=== PATIENT | female | born 1935 | race Caucasian/White ===

== ENCOUNTER 2024-01-12 11:34 | Emergency (ER) | payer MEDICARE, OTHER ==
[2024-01-12 11:48] VITALS: BP 161/78; PULSE 75
[2024-01-12] MEDS ORDERED: Naloxone 2 MG/2 ML Syringe IVPUSH PRN (13:31)
[2024-01-12] MEDS: HYDROmorphone 0.5 MG/0.5 ML Syringe IVPUSH ONE ×2 (13:50→15:05)
[2024-01-12] MEDS: Ondansetron 4 MG/2 ML SDV IVPUSH PRN (13:50)
== END 2024-01-12 15:15 ==
LOC: CC.ED 11:34
DX: S72.001A Fracture of unspecified part of neck of right femur, initial encounter for closed fracture (principal); I10 Essential (primary) hypertension; M19.90 Unspecified osteoarthritis, unspecified site; E11.9 Type 2 diabetes mellitus without complications; Z79.82 Long term (current) use of aspirin; Z79.899 Other long term (current) drug therapy; Z91.040 Latex allergy status; Z88.5 Allergy status to narcotic agent; Z88.8 Allergy status to other drugs, medicaments and biological substances; W01.0XXA Fall on same level from slipping, tripping and stumbling without subsequent striking against object, initial encounter
CPT/HCPCS: 72170; 73552; 96374; 96375; 96376; 99285; J1170; J2405

== ENCOUNTER 2024-01-19 15:12 | Inpatient (IN) | payer MEDICARE, OTHER ==
[2024-01-19] MEDS ORDERED: Temazepam 15 MG Cap PO PRN (15:51)
[2024-01-19] MEDS ORDERED: Polyethylene Glycol 3350 Powder 17 GM Packet PO PRN (15:51)
[2024-01-19] MEDS ORDERED: Ondansetron 4 MG Tab.DIS PO PRN (15:51)
[2024-01-19] MEDS ORDERED: [UNRECOGNIZED DRUG - OTHER] PO SCH (17:30)
[2024-01-19] MEDS ORDERED: METFORMIN HCL PO SCH (17:30)
[2024-01-19] MEDS ORDERED: SITAGLIPTIN PHOS PO SCH (17:30)
[2024-01-19] MEDS ORDERED: diphenhydrAMINE 25 MG Cap PO PRN (17:45)
[2024-01-19] MEDS: Potassium Chloride 10 MEQ Tab.ER PO SCH (19:22)
[2024-01-19] MEDS: Docusate Sodium 100 MG Cap PO SCH (19:22)
[2024-01-19] MEDS: Simvastatin 10 MG Tab PO SCH (19:22)
[2024-01-19] MEDS: Losartan 25 MG Tab PO SCH (19:23)
[2024-01-19] MEDS: Calcium Carbonate/Vitamin D3 1250 MG-5 MCG Tab PO SCH (19:23)
[2024-01-19] MEDS ORDERED: Non-Formulary Medication 1 Each (Glucosam/Chond-Msm1/C/Mang/Bor [Glucosa-Chond-Msm Complex PO SCH (20:00)
[2024-01-19] MEDS: traMADol 50 MG Tab PO PRN (22:31)
[2024-01-20] MEDS: metFORMIN 500 MG Tab PO SCH (01:04)
[2024-01-20] MEDS: Pantoprazole 40 MG Tab.CR PO SCH (06:38)
[2024-01-20] MEDS: glyBURIDE 5 MG Tab PO SCH (07:54)
[2024-01-20] MEDS: Aspirin 81 MG Tab.EC PO SCH (07:54)
[2024-01-20] MEDS: Saxagliptin 2.5 MG Tab PO SCH (07:54)
[2024-01-20] MEDS: Multivitamin Tab PO SCH (07:55)
[2024-01-20] MEDS: Furosemide 40 MG Tab PO SCH (07:55)
[2024-01-20] MEDS: Ferrous Sulfate 324 MG Tab.EC PO SCH (07:55)
[2024-01-20] MEDS ORDERED: Loratadine 10 MG Tab PO PRN (08:38)
[2024-01-20] MEDS: Enoxaparin 40 MG/0.4 ML Syringe SUBCUT SCH (11:30)
[2024-01-20] MEDS ORDERED: Enoxaparin 40 MG/0.4 ML Syringe SUBCUT SCH (12:00)
[2024-01-21] MEDS: Hypromellose 0.3% Ophth Soln 15 ML Bottle EYEBOTH ONE (12:28)
[2024-01-21] MEDS: metFORMIN 500 MG Tab PO ONE (17:37)
[2024-01-21] MEDS: Hypromellose 0.3% Ophth Soln 15 ML Bottle EYEBOTH SCH (19:15)
[2024-01-22] MEDS: METFORMIN PO SCH ×2 (07:48→18:17)
[2024-01-22] MEDS: SITAGLIPTIN PO SCH ×2 (07:48→18:17)
[2024-01-24] MEDS ORDERED: Orphenadrine 60 MG/2 ML Inj IM ONE (01:41)
[2024-01-31] MEDS: Docusate Sodium 100 MG Cap PO SCH (07:31)
[2024-02-12 19:20] VITALS: BP 124/61
[2024-02-12 20:44] VITALS: PULSE 85
== END 2024-02-13 10:30 | disposition home or self-care (01) | DRG 561 ==
LOC: CC.MS 15:12 → UNDOADMIN 15:12 → CC.MS 15:42
PROVIDERS: ADMIT Physician Assistant Medical; ATTEND Physician Assistant Medical
DX: S72.001D Fracture of unspecified part of neck of right femur, subsequent encounter for closed fracture with routine healing (principal); M97.01XD Periprosthetic fracture around internal prosthetic right hip joint, subsequent encounter; E78.00 Pure hypercholesterolemia, unspecified; I10 Essential (primary) hypertension; K21.9 Gastro-esophageal reflux disease without esophagitis; M19.90 Unspecified osteoarthritis, unspecified site; E11.9 Type 2 diabetes mellitus without complications; Z91.040 Latex allergy status; Z88.5 Allergy status to narcotic agent; Z88.8 Allergy status to other drugs, medicaments and biological substances; Z79.82 Long term (current) use of aspirin; Z79.84 Long term (current) use of oral hypoglycemic drugs; Z79.899 Other long term (current) drug therapy; Z98.890 Other specified postprocedural states; W19.XXXD Unspecified fall, subsequent encounter
CPT/HCPCS: 82947; 97110-GP; 97161-GP; 97530-GP; A9270-GY; J1650

== ENCOUNTER 2024-12-23 08:35 | Observation (INO) | payer MEDICARE, OTHER ==
[2024-12-23] MEDS: traMADol 50 MG Tab PO ONE (10:10)
[2024-12-23] MEDS ORDERED: Ondansetron 4 MG/2 ML SDV IV PRN (11:37)
[2024-12-23] MEDS ORDERED: Naloxone 2 MG/2 ML Syringe IVPUSH PRN (11:37)
[2024-12-23] MEDS ORDERED: fentaNYL 50 MCG/ML SDV IVPUSH PRN (11:37)
[2024-12-23] MEDS ORDERED: Ondansetron 4 MG Tab.DIS PO PRN (11:37)
[2024-12-23 11:51] LABS: BASOPHILS ABSOLUTE AUTO 0.03 10^3/uL (0.00-0.50); BASOPHILS PERCENT AUTO 0.2 % (0-1); EOSINOPHILS ABSOLUTE AUTO 0.17 10^3/uL (0.00-1.50); EOSINOPHILS PERCENT AUTO 0.9 % (0-6); HEMATOCRIT 33.6 % (37.0-47.0); HEMOGLOBIN 10.7 g/dL (12.0-16.0); IMMATURE GRAN PERCENT AUTO 0.5 % (0.0-4.9); LYMPHOCYTES ABSOLUTE AUTO 1.55 10^3/uL (0.60-5.00); MEAN CORPUSCULAR HEMOGLOBIN 27.9 pg (27.0-32.0); MEAN CORPUSCULAR HGB CONC 31.8 g/dL (32.0-36.0); MEAN CORPUSCULAR VOLUME 87.5 fL (83.0-97.0); MONOCYTES ABSOLUTE AUTO 1.01 10^3/uL (0.00-1.50); MONOCYTES PERCENT AUTO 5.2 % (0-10); NEUTROPHILS ABSOLUTE AUTO 16.49 x10^3/uL (1.80-8.00); NEUTROPHILS PERCENT AUTO 85.2 % (41-71); PLATELET COUNT,PLT 206 10^3/uL (150-400); RED BLOOD CELL COUNT 3.84 x10^6/uL (4.00-5.50); WHITE BLOOD CELL COUNT,WBC 19.4 10^3/uL (4.0-11.0)
[2024-12-23 12:04] LABS: ALBUMIN 3.5 g/dL (3.4-5.0); BILIRUBIN TOTAL 0.4 mg/dL (0.0-1.0); CALCIUM 9.7 mg/dL (8.4-10.1); CREATININE 1.1 mg/dL (0.6-1.0); EST CRCL DRUG DOSING (CG) 24.9 mL/min; POTASSIUM,K 4.2 mEq/L (3.5-5.0); PROTEIN TOTAL,TP 7.1 g/dL (6.4-8.2)
[2024-12-23] MEDS: metFORMIN 500 MG Tab PO ONE (17:50)
[2024-12-23] MEDS: Potassium Chloride 10 MEQ Tab.ER PO SCH (17:50)
[2024-12-23] MEDS: traMADol 50 MG Tab PO PRN (18:29)
[2024-12-23] MEDS: Celecoxib 100 MG Cap PO SCH (19:39)
[2024-12-23] MEDS: Simethicone 80 MG Tab.Chew PO SCH (19:39)
[2024-12-23] MEDS: Calcium Carbonate/Vitamin D3 1250 MG-5 MCG Tab PO SCH (19:40)
[2024-12-23] MEDS: diphenhydrAMINE 25 MG Cap PO SCH (19:40)
[2024-12-23] MEDS: Losartan 100 MG Tab PO SCH (19:40)
[2024-12-23] MEDS: Simvastatin 10 MG Tab PO SCH (19:42)
[2024-12-23] MEDS ORDERED: Non-Formulary Medication 1 Each (Glucosam/Chond-Msm1/C/Mang/Bor [Glucosa-Chond-Msm Complex PO SCH (20:00)
[2024-12-24] MEDS: Pantoprazole 40 MG Tab.CR PO SCH (06:38)
[2024-12-24 07:28] VITALS: BP 137/89; PULSE 78
[2024-12-24] MEDS: metFORMIN 500 MG Tab PO SCH (07:45)
[2024-12-24] MEDS: Furosemide 40 MG Tab PO SCH (07:45)
[2024-12-24] MEDS: Naproxen 500 MG Tab PO SCH (07:45)
[2024-12-24] MEDS: Aspirin 81 MG Tab.EC PO SCH (07:45)
[2024-12-24] MEDS: glyBURIDE 5 MG Tab PO SCH (07:45)
[2024-12-24] MEDS: Multivitamin Tab PO SCH (07:46)
[2024-12-24] MEDS: Loratadine 10 MG Tab PO SCH (07:46)
[2024-12-24] MEDS: Enoxaparin 30 MG/0.3 ML Syringe SUBCUT SCH (07:46)
[2024-12-24 07:55] LABS: ALBUMIN 3.2 g/dL (3.4-5.0); BILIRUBIN TOTAL 0.4 mg/dL (0.0-1.0); C-REACTIVE PROTEIN 1.58 mg/dL (<=0.50); CALCIUM 9.5 mg/dL (8.4-10.1); EST CRCL DRUG DOSING (CG) 27.39 mL/min; POTASSIUM,K 4.5 mEq/L (3.5-5.0); PROTEIN TOTAL,TP 6.6 g/dL (6.4-8.2)
[2024-12-24 07:56] LABS: BASOPHILS ABSOLUTE AUTO 0.04 10^3/uL (0.00-0.50); BASOPHILS PERCENT AUTO 0.3 % (0-1); EOSINOPHILS ABSOLUTE AUTO 0.49 10^3/uL (0.00-1.50); EOSINOPHILS PERCENT AUTO 4.2 % (0-6); HEMATOCRIT 27.8 % (37.0-47.0); HEMOGLOBIN 8.9 g/dL (12.0-16.0); IMMATURE GRAN ABSOLUTE AUTO 0.03 10^3/uL (0.00-0.49); IMMATURE GRAN PERCENT AUTO 0.3 % (0.0-4.9); LYMPHOCYTES ABSOLUTE AUTO 2.47 10^3/uL (0.60-5.00); LYMPHOCYTES PERCENT AUTO 21.2 % (24-44); MEAN CORPUSCULAR VOLUME 87.4 fL (83.0-97.0); MONOCYTES ABSOLUTE AUTO 0.87 10^3/uL (0.00-1.50); MONOCYTES PERCENT AUTO 7.5 % (0-10); NEUTROPHILS ABSOLUTE AUTO 7.74 x10^3/uL (1.80-8.00); NEUTROPHILS PERCENT AUTO 66.5 % (41-71); PLATELET COUNT,PLT 209 10^3/uL (150-400); RED BLOOD CELL COUNT 3.18 x10^6/uL (4.00-5.50); WHITE BLOOD CELL COUNT,WBC 11.6 10^3/uL (4.0-11.0)
[2024-12-24] MEDS: Saxagliptin 2.5 MG Tab PO SCH (11:28)
[2024-12-24] MEDS: Tuberculin, PPD 5 Units/0.1 ML 1 ML MDV IDERM ONE (12:32)
[2024-12-24] MEDS ORDERED: metFORMIN 500 MG Tab PO SCH (17:30)
== END 2024-12-24 13:25 ==
LOC: CC.ED 08:35 → CC.MS 10:08
PROVIDERS: ADMIT Physician Assistant Medical; ATTEND Physician Assistant Medical
DX: S32.810A Multiple fractures of pelvis with stable disruption of pelvic ring, initial encounter for closed fracture (principal); I10 Essential (primary) hypertension; E11.9 Type 2 diabetes mellitus without complications; E78.00 Pure hypercholesterolemia, unspecified; K21.9 Gastro-esophageal reflux disease without esophagitis; Z79.84 Long term (current) use of oral hypoglycemic drugs; Z79.899 Other long term (current) drug therapy; W18.30XA Fall on same level, unspecified, initial encounter
CPT/HCPCS: 36415; 80053; 82947; 85025; 86140; 86580; 87426-QW; 96372; 97161-GP; 99223; 99239; 99285; A9270-GY; G0378; J1650